=== PATIENT | female | born 1980 | race Caucasian/White ===

== ENCOUNTER 2017-02-12 09:23 | Inpatient (IN) | payer MEDICAID ==
[~2017-02-12] VITALS: Ht 160 cm; Wt 85.5 kg
[2017-02-12] MEDS ORDERED: OXYTOCIN 30 UNITS/LR 500 ML IV PRN ×2 (09:30→17:00)
[2017-02-12] MEDS ORDERED: CEFAZOLIN 2 GM/50 ML (PMX) 50 ML IV SCH (09:30)
[2017-02-12] MEDS ORDERED: METHYLERGONOVINE 0.2 MG INJ IM PRN ×2 (09:30→17:00)
[2017-02-12] MEDS ORDERED: MISOPROSTOL 200 MCG TAB PR PRN ×2 (09:30→17:00)
[2017-02-12] MEDS ORDERED: CARBOPROST 250 MCG INJ IM PRN ×2 (09:30→17:00)
[2017-02-12] MEDS ORDERED: LACTATED RINGER'S 1,000 ML IV SCH ×2 (09:54→10:00)
[2017-02-12 10:01] LABS: ADD SCAN DIFF NO
[2017-02-12 10:05] LABS: BASOPHILS % 0.2 % (0.0-2.0); EOSINOPHILS # 0.1 10^3/ul (0.0-0.5); HEMATOCRIT 34.3 % (37.0-47.0); HEMOGLOBIN 11.6 g/dl (12.0-16.0); LYMPHOCYTES # 1.2 10^3/ul (0.8-2.9); LYMPHOCYTES % 19.5 % (15.0-51.0); MEAN CORPUSCULAR HEMOGLOBIN 33.1 pg (29.0-33.0); MEAN CORPUSCULAR HGB CONC 33.8 g/dl (32.0-37.0); MEAN PLATELET VOLUME 11.4 fl (7.4-10.4); MONOCYTE # 0.3 10^3/ul (0.3-0.9); MONOCYTES % 5.7 % (0.0-11.0); NEUTROPHIL # 4.4 10^3/ul (1.6-7.5); NEUTROPHILS % 73.3 % (39.0-77.0); PLATELET COUNT 131 10^3/UL (140-415); RED CELL DISTRIBUTION WIDTH 14.1 % (11.5-14.5)
[2017-02-12 10:28] LABS: INR 0.93; PROTIME 12.5 Sec (12.2-14.2)
[2017-02-12] MEDS ORDERED: EPHEDrine SULFATE 50 MG/5 ML SYG ONE (11:28)
[2017-02-12] MEDS ORDERED: morphine SULFATE/PF (10 MG/10 ML) INJ ONE (11:28)
[2017-02-12] MEDS ORDERED: FENTAnyl 50 MCG/ML VIAL ONE (11:28)
[2017-02-12] MEDS ORDERED: OXYTOCIN 30 UNITS/LR 500 ML IV ONE ×2 (11:28→12:57)
[2017-02-12] MEDS ORDERED: PHENYLephrine (100 MCG/ML) 5ML SYG ONE (11:29)
[2017-02-12] MEDS ORDERED: DEXAMETHASONE 4 MG/ML 1 ML INJ ONE (12:05)
[2017-02-12] MEDS ORDERED: ONDANSETRON 4 MG INJ ONE (12:05)
--- NOTE | 2017-02-12 12:42 | PREOPHP ---
DATE OF ADMISSION: 02/12/2017 HISTORY OF PRESENT ILLNESS: A 37-year-old female 4, para 3, estimated date of delivery 01/30 at 39 weeks' gestation, is admitted for repeat section. The patient also desires bi lateral tubal ligation. PAST MEDICAL HISTORY: Unremarkable. PAST SURGICAL HISTORY: section x3. ALLERGIES: NO KNOWN ALLERGIES. FAMILY HISTORY: Noncontributory. PHYSICAL EXAMINATION: VITAL SIGNS: The patient is afebrile, vital signs stable. HEAD, NECK AND CHEST: Within normal limits. ABDOMEN: Soft, nontender and gravid. EXTREMITIES: Within normal limits. NEUROLOGIC: Within normal limits. IMPRESSION: at 39 weeks with previous section x3 and the patient desires sterili zation. PLAN: Delivery by repeat section and bilateral tubal ligation. Risks, benefits and altern atives of the procedure were explained to the patient. The patient has been counseled about all of her contraceptive options. It was explained to patient that with bilateral tubal ligation there is a chance of failure resulting in ectopic and/or intrauterine . After counseling, the patient said she understood and gave informed consent for the procedures. Dictated By: ANNE MARIE RICE/ALEXIS Conf#: [id number] DID#: [id number]
[2017-02-12] MEDS ORDERED: NALOXONE (0.4 MG/ML) INJ IV PRN (13:30)
[2017-02-12] MEDS ORDERED: DIPHENHYDRAMINE 50 MG INJ IV PRN (13:30)
[2017-02-12] MEDS ORDERED: HYDROmorphONE 1 MG/ML SYG IV PRN ×2 (13:30)
[2017-02-12] MEDS ORDERED: ONDANSETRON 4 MG INJ IV PRN (13:30)
[2017-02-12] MEDS ORDERED: PROCHLORPERAZINE 10 MG INJ IV PRN (13:30)
[2017-02-12] MEDS ORDERED: ZOLPIDEM 5 MG TAB PO PRN (13:30)
[2017-02-12 14:55] VITALS: BMI 12.6
[2017-02-12] MEDS: LACTATED RINGER'S 1,000 ML IV SCH (16:45)
[2017-02-12] MEDS ORDERED: LANOLIN 7 GM TUBE TOP PRN (17:00)
[2017-02-12] MEDS ORDERED: OXYCODONE/ACETAMINOPHEN (5/325) TAB PO PRN ×2 (17:00)
[2017-02-12] MEDS: OXYTOCIN 30 UNITS/LR 500 ML IV SCH ×2 (17:05→20:52)
--- NOTE | 2017-02-12 17:27 | OPR ---
DATE OF OPERATION: 02/12/2017 PREOPERATIVE DIAGNOSES: 1. at 39 weeks with previous section x3. 2. Voluntary sterilization. POSTOPERATIVE DIAGNOSES: 1. at 39 weeks with previous section x3. 2. Voluntary sterilization. 3. Pelvic adhesions. OPERATION PERFORMED: 1. Repeat low transverse section. 2. Lysis of adhesions. 3. Bilateral tubal ligation. SURGEON: Anne Marie Gerardo MD RAIL FLAW DETECTOR OPERATOR: Elijah Lin MD ANESTHESIA: Spinal. ANESTHESIOLOGIST: Bola Shah DO PROCEDURE: The patient was taken to the operating room and placed on the operating table. After xie ccessful spinal anesthesia was given, the patient was placed in supine position. The area was prepa red and draped in the usual sterile fashion. Spinal anesthesia was tested and was satisfactory. Us ing a scalpel, Pfannenstiel incision was made about 2 fingerbreadths above the symphysis pubis. The incision was carried to the fascia. The fascia was incised and extended bilaterally with Ortiz scis sors. Two Vi's were used to separate the fascia from the muscle. The muscle was dissected in m idline down to peritoneum. The peritoneum was secured with 2 Sofia's and incised with Metzenbaum sc issors. Using a scalpel, a small transverse incision was made in the lower segment of the uterus. Upon entering the uterine cavity, bandage scissors were inserted to extend the incision bilaterally, curved up. Baby was delivered from cephalic presentation. After suctioning clear of amniotic flui d, the baby was handed off to the team in attendance. Apgars were 9 and 9. The placenta w as delivered without difficulty. The uterus was closed with #1 Monocryl continuous locked. After assuring hemostasis, both ovaries and tubes were inspected. There were adhesions involving th e fallopian tubes ovaries on both sides. In order to perform the bilateral tubal ligation, sharp ly sis of adhesions was performed in order to be able to separate the fallopian tubes to perform the pr ocedure. After lysis of adhesions was performed on the right fallopian tube, the right fallopian tu be was grasped with a [place] clamp. Using 0 plain suture ligature, a 5 cm segment of the right fal lopian tube was doubly ligated. Using Metzenbaum scissors, a portion of the right fallopian tube ab ove the ligated area was excised and sent to pathology. Same procedure was repeated on the left fal lopian tube. After assuring hemostasis, the peritoneal cavity was irrigated with warm saline. The peritoneum was closed with 2-0 Vicryl continuous. The fascia was closed with #1 Vicryl continuous in 2 segments. The skin was closed with devyn. Estimated blood loss was 500 mL. Complications none. All count s were correct. Dictated By: ANNE MARIE RICE/ALEXIS Conf#: [id number] DID#: [id number]
[2017-02-12 17:30] VITALS: BP 112/61; PULSE 68; RESP 18
[2017-02-12] MEDS: KETOROLAC 30 MG INJ IV PRN (17:56)
[2017-02-12 20:00] VITALS: BP 115/60; PULSE 76; RESP 18
[2017-02-12] MEDS: SENNA/DOCUSATE NA (8.6MG/50MG) TAB PO SCH (20:46)
[2017-02-12] MEDS ORDERED: IBUPROFEN 800 MG TAB PO SCH (22:00)
[2017-02-13] VITALS: BP 108/49; PULSE 66; RESP 18
[2017-02-13] MEDS: LACTATED RINGER'S 1,000 ML IV SCH ×3 (00:50→16:45)
[2017-02-13 04:02] VITALS: BP 105/38; PULSE 70; RESP 18
[2017-02-13 06:29] LABS: ADD SCAN DIFF NO
[2017-02-13 06:49] LABS: EOSINOPHILS % 0.2 % (0.0-7.0); HEMATOCRIT 30.8 % (37.0-47.0); HEMOGLOBIN 10.1 g/dl (12.0-16.0); LYMPHOCYTES # 1.3 10^3/ul (0.8-2.9); LYMPHOCYTES % 14.4 % (15.0-51.0); MEAN CORPUSCULAR HEMOGLOBIN 32.6 pg (29.0-33.0); MEAN CORPUSCULAR HGB CONC 32.8 g/dl (32.0-37.0); MEAN CORPUSCULAR VOLUME 99.4 fl (82.0-101.0); MEAN PLATELET VOLUME 11.8 fl (7.4-10.4); MONOCYTE # 0.5 10^3/ul (0.3-0.9); MONOCYTES % 5.4 % (0.0-11.0); NEUTROPHIL # 7.1 10^3/ul (1.6-7.5); NEUTROPHILS % 79.6 % (39.0-77.0); PLATELET COUNT 112 10^3/UL (140-415); RED CELL DISTRIBUTION WIDTH 14.4 % (11.5-14.5); WHITE BLOOD COUNT 8.9 10^3/ul (4.8-10.8)
[2017-02-13 07:39] VITALS: BP 89/50; PULSE 72; RESP 18
[2017-02-13] MEDS: KETOROLAC 30 MG INJ IV PRN (09:15)
[2017-02-13] MEDS: SENNA/DOCUSATE NA (8.6MG/50MG) TAB PO SCH ×2 (09:15→21:05)
[2017-02-13 12:00] VITALS: BP 110/76; PULSE 78; RESP 18
[2017-02-13] MEDS: IBUPROFEN 800 MG TAB PO SCH ×3 (14:00→21:44)
[2017-02-13 16:00] VITALS: BP 98/64; PULSE 80; RESP 18
--- NOTE | 2017-02-13 17:56 | QN ---
Documentation Comment pod1 pt doing well vss exam wnl a.p pod 1 continue care CHAYO MONTALVO MD Feb 13, 2017 17:56
[2017-02-13 19:30] VITALS: BP 105/64; PULSE 65; RESP 19
[2017-02-14] MEDS: LACTATED RINGER'S 1,000 ML IV SCH (00:45)
[2017-02-14 03:53] VITALS: BP 101/59; PULSE 61; RESP 19
[2017-02-14] MEDS: IBUPROFEN 800 MG TAB PO SCH ×3 (05:39→21:43)
[2017-02-14 07:37] VITALS: BP 121/74; PULSE 70; RESP 18
[2017-02-14] MEDS: SENNA/DOCUSATE NA (8.6MG/50MG) TAB PO SCH ×2 (08:14→20:36)
[2017-02-14 16:00] VITALS: BP 99/53; PULSE 72; RESP 18
--- NOTE | 2017-02-14 19:44 | QN ---
Documentation Comment No complaint Afebrile VSS Abdomen soft POD #2 Stable Continue present care. ANNE MARIE MEANS MD Feb 14, 2017 19:44
[2017-02-14 19:45] VITALS: BP 110/59; PULSE 67; RESP 19
[2017-02-15 04:00] VITALS: BP 113/64; PULSE 68; RESP 20
[2017-02-15] MEDS: IBUPROFEN 800 MG TAB PO SCH ×3 (05:44→21:50)
[2017-02-15 07:45] VITALS: BP 104/64; PULSE 69; RESP 18
[2017-02-15] MEDS ORDERED: DIPHTH/TET/ACEL PERTUSS (ADULT) 0.5 ML VIAL IM* ONE (09:00)
[2017-02-15] MEDS: SENNA/DOCUSATE NA (8.6MG/50MG) TAB PO SCH ×2 (09:25→21:01)
[2017-02-15 12:15] VITALS: BP 112/60; PULSE 72; RESP 18
--- NOTE | 2017-02-15 12:31 | QN ---
Documentation Comment No complaint Afebrile VSS Abdomen soft Stable Continue present care. ANNE MARIE MEANS MD Feb 15, 2017 12:31
[2017-02-15 16:33] VITALS: BP 110/62; PULSE 74; RESP 16
[2017-02-15 19:45] VITALS: BP 118/69; PULSE 73; RESP 18
[2017-02-16 03:30] VITALS: BP 86/57; PULSE 65; RESP 18
[2017-02-16] MEDS: IBUPROFEN 800 MG TAB PO SCH (05:42)
[2017-02-16 08:00] VITALS: BP 100/57; PULSE 61; RESP 18
[2017-02-16] MEDS: SENNA/DOCUSATE NA (8.6MG/50MG) TAB PO SCH (09:33)
--- NOTE | 2017-02-16 13:26 | DS ---
DATE OF ADMISSION: 02/12/2017 DATE OF DISCHARGE: 02/16/2017 ADMITTING DIAGNOSIS: at term with previous section. HISTORY: A 37-year-old female 4, para 3 at the time of admission, para 4 at the time of dis charge, with term was admitted for repeat section. The patient also desires surg ical sterilization. On 02/12/2017 after obtaining informed consent, the patient underwent a repeat low transverse section and bilateral tubal ligation. The patient also had lysis of pelvic adhesions. The patient's operation was uncomplicated. Postoperatively, patient was given clear liq uid diet, which was advanced to regular diet, which she tolerated well. The patient is discharged o n postop day 4 after having had adequate bladder and bowel function. CONDITION ON DISCHARGE: Stable. DISCHARGE INSTRUCTIONS: 1. Diet: Regular. 2. Activities: Pelvic rest and no strenuous activities. MEDICATIONS: 1. Motrin as needed for pain. 2. Continue with vitamins and ferrous sulfate. FOLLOWUP: Follow up in clinic in 1 week. FINAL DIAGNOSES: 1. Term , delivered by section. 2. Previous section. 3. Pelvic adhesions. 4. Voluntary sterilization. 5. Mother with single liveborn. Dictated By: ANNE MARIE RICE/ALEXIS Conf#: [id number] DID#: [id number]
== END 2017-02-16 15:32 | disposition home or self-care (01) | DRG 766 ==
LOC: L-D 09:23 → PP1 17:09
PROVIDERS: ADMIT Obstetrics & Gynecology; ATTEND Obstetrics & Gynecology
PROC: 0UL70ZZ Occlusion of Bilateral Fallopian Tubes, Open Approach (ICD-10-PCS; 2017-02-12)
PROC: 10D00Z1 Extraction of Products of Conception, Low, Open Approach (ICD-10-PCS; principal; 2017-02-12 12:30)
PROC: 3E00X4Z Introduction of Serum, Toxoid and Vaccine into Skin and Mucous Membranes, External Approach (ICD-10-PCS; 2017-02-15)
DX: O34.211 Maternal care for low transverse scar from previous cesarean delivery (principal); K66.0 Peritoneal adhesions (postprocedural) (postinfection); Z3A.39 39 weeks gestation of pregnancy; Z30.2 Encounter for sterilization; Z37.0 Single live birth; Z23 Encounter for immunization
CPT/HCPCS: 85025; 85610; 85730; 86592; 86850; 86900; 86901; 86920; 88302; 90715; 99464; J0690; J1100; J1885; J2274; J2370; J2405; J2590; J3010; J7120